=== PATIENT | female | born 1940 | race Caucasian/White ===

== ENCOUNTER → 2018-08-11 | Outpatient (CLI) | payer MEDICARE ==
[~2018-08-11] MED LIST: AUGM875T28 PO; BISO5TAB5 PO; COUM2.5T17 PO; FOSA70TA PO; GLUC15002 PO; GLUC1CAP10 PO; LYRI75CA PO; MIRA3350 PO; PERC5TAB12 PO; SENO8.6T5 PO
[2018-08-11 10:16] LABS: HEMATOCRIT 41.2 % (36.0-47.0); HEMOGLOBIN 13.5 g/dl (12.0-15.5); MEAN CORPUSCULAR HEMOGLOBIN 31.1 pg (27.0-33.0); MEAN CORPUSCULAR HGB CONC 32.8 g/dl (32.0-36.5); MEAN CORPUSCULAR VOLUME 94.9 fl (80.0-96.0); PLATELET COUNT, AUTOMATED 221 10^3/uL (150-450); RED BLOOD COUNT 4.34 10^6/uL (4.00-5.40); WHITE BLOOD COUNT 5.7 10^3/uL (4.0-10.0)
--- NOTE | 2018-08-11 10:19 | REP ---
Chest x-ray: Two views. History: Right hip arthroplasty. Comparison study: August 29, 2015. Findings: There is moderate cardiomegaly. Cardiothoracic ratio measures 55.7%. Heart size is felt to be unchanged. The aorta is tortuous as before. The lungs are somewhat hyperinflated but remain clear. Pleural angles are sharp. There are degenerative changes in the thoracic spine. Pulmonary vasculature is not increased. Impression: Hyperinflation consistent with some degree of COPD. Cardiomegaly. No acute changes. Electronically Signed by Heribe Hernandez MD 08/11/2018 10:50 A
[2018-08-11 10:38] LABS: ALBUMIN 4.2 GM/DL (3.2-5.2); BILIRUBIN,TOTAL 0.8 MG/DL (0.2-1.0); CALCIUM LEVEL 9.3 MG/DL (8.8-10.2); CREATININE FOR GFR 0.99 MG/DL (0.55-1.30); GLOMERULAR FILTRATION RATE 57.6 (>39); POTASSIUM SERUM 4.1 MEQ/L (3.5-5.1); TOTAL PROTEIN 7.6 GM/DL (6.4-8.2)
[2018-08-11 10:40] LABS: ERYTHROCYTE SEDIMENTATION RATE 21 mm/hr (0-30)
--- NOTE | 2018-08-12 21:42 | ECGEPIP ---
Stationary ECG Study [facility] Test Date: 2018-08-11 Pat Name: JOSE BOYLE Department: Room: - Gender: F Television Inspector: : 1940 Requested By: Naman Carbone Order Number: [id number] Reading MD: Cirilo Gonzalez Measurements Intervals [place] Rate: 63 P: 41 NV: 145 QRS: 22 QRSD: 98 T: 4 QT: 403 QTc: 413 Interpretive Statements SINUS RHYTHM MODERATE ST DEPRESSION Electronically Signed On 08-12-2018 21:41:58 EST by Cirilo Gonzalez
== END ==
LOC: M LAB 09:11
PROVIDERS: ATTEND Orthopaedic Surgery
DX: Z01.818 Encounter for other preprocedural examination (principal); I51.7 Cardiomegaly; M16.11 Unilateral primary osteoarthritis, right hip

== ENCOUNTER 2018-09-08 06:45 | Inpatient (IN) | payer MEDICARE ==
--- NOTE | 2018-08-23 15:29 | HPE ---
DATE OF ADMISSION: 09/08/2018 CHIEF COMPLAINT: Right hip pain. HISTORY OF PRESENT ILLNESS: This is a pleasant 77-year-old female with progressively worsening right hip pain and stiffness. She has failed to improve with conservative treatment. She has elected for surgery for her continued symptoms. She has pain with weightbearing activities and her activities of daily living. X-rays of the hip are notable for advanced osteoarthritis of the right hip joint. She has consented for a right total hip arthroplasty by Dr. Naman Chan. Medical optimization was performed by Dr. Carbone's office. ALLERGIES: No known drug allergies. CURRENT MEDICATIONS: - alendronate sodium 70 mg once a week - bisoprolol 5 mg a day - lisinopril 10 mg a day PAST MEDICAL HISTORY: Includes hypertension and osteoporosis. PAST SURGICAL HISTORY: Includes a left total hip arthroplasty. SOCIAL HISTORY: The patient is retired. She does not smoke or drink alcohol. FAMILY HISTORY: Noncontributory. REVIEW OF SYSTEMS: This patient denies chest pain, heart palpitations, cough, wheezing, difficulty breathing, and shortness of breath. She denies abdominal pain, nausea, vomiting, diarrhea, or constipation. She denies recent upper respiratory infection or urinary tract infection symptoms. She does complain of persistent pain in the right hip and pain with weightbearing activities in the right hip. PHYSICAL EXAMINATION: GENERAL: She is a well-nourished, well-developed, in no acute distress, alert female. She ambulates with a significant limp favoring the right lower extremity. She uses a cane. VITAL SIGNS: She is 4 feet, 11 inches, weighs 161.2 pounds with a temperature of 97.7, blood pressure 132/60, pulse of 62, and respirations of 16. NECK: Supple without adenopathy or jugular venous distention. LUNGS: Clear to auscultation without rales or wheeze. HEART: Regular rate and rhythm. ABDOMEN: Bowel sounds were present. EXTREMITIES: Examination of the hip revealed intact skin. She had decreased range of motion secondary to pain and stiffness. The limb is neurovascularly intact. LABORATORY DATA: Chest x-ray showed hyperinflation consistent with some degree of COPD, cardiomegaly but no acute changes. EKG showed sinus rhythm at 63 beats per minute. Glucose 106, BUN 15, creatinine 0.99, sodium 138, potassium 4.1. CBC was within normal limits. Sedimentation rate was 21, prothrombin time 13.2, INR 1.11. IMPRESSION: Symptomatic osteoarthritis of the right hip joint. PLAN: Consented for a right total hip arthroplasty by Dr. Naman Chan.
[~2018-09-08] VITALS: Ht 154.9 cm; Wt 73.0 kg
[2018-09-08] MEDS ORDERED: ceFAZolin 2 GM/D5W 50 ML IV BAG (J0690 PER 500MG) As Ordered ONE (07:07)
[2018-09-08] MEDS ORDERED: LR 1,000 ML IV ONE (07:30)
[2018-09-08] MEDS ORDERED: BUPIVACAINE/DEXTROSE 0.75% 2 ML AMP As Ordered ONE (08:22)
[2018-09-08] MEDS ORDERED: LIDOCAINE 2% INJ 100 MG/5 ML SDV (FOR ANES.) As Ordered ONE (08:22)
[2018-09-08] MEDS ORDERED: PROPOFOL 200 MG/20 ML VIAL As Ordered ONE (08:22)
[2018-09-08] MEDS: BISOPROLOL FUMARATE 5 MG TAB PO SCH (09:00)
[2018-09-08] MEDS ORDERED: MIDAZOLAM INJ 2 MG/2 ML VIAL (J2250) As Ordered ONE (09:10)
[2018-09-08] MEDS ORDERED: fentaNYL 100 MCG/2 ML INJECTION (J3010) As Ordered ONE (09:11)
[2018-09-08] MEDS ORDERED: EPINEPHrine INJ 1 MG/ML 1ML AMP As Ordered ONE (09:34)
[2018-09-08] MEDS ORDERED: TRANEXAMIC ACID 100 MG/ML 10ML VIAL As Ordered ONE (09:34)
[2018-09-08] MEDS ORDERED: ceFAZolin 1GM INJ (J0690 PER 500MG) As Ordered ONE (09:34)
[2018-09-08] MEDS ORDERED: ePHEDrine SULFATE 25 MG/5 ML(5MG/ML) SYRINGE As Ordered ONE ×2 (10:57→11:15)
[2018-09-08] MEDS ORDERED: HYDROMORPHONE HCL 0.5 MG/ 0.5 ML SYRINGE (J1170 PER 1) IV PRN (12:15)
[2018-09-08] MEDS ORDERED: fentaNYL 100 MCG/2 ML INJECTION (J3010) IV PRN (12:15)
[2018-09-08] MEDS ORDERED: ONDANSETRON 4MG/2ML VIAL (J2405) IV PRN ×2 (12:15)
[2018-09-08] MEDS ORDERED: PERCOCET 5MG/325MG TAB PO PRN (12:15)
[2018-09-08] MEDS ORDERED: LR 1,000 ML IV SCH ×2 (12:15)
[2018-09-08] MEDS ORDERED: MORPHINE 4 MG/ML 1ML VIAL/SYRINGE (J2270) IV PRN ×2 (12:15)
[2018-09-08] MEDS ORDERED: ACETAMINOPHEN TAB 650MG DOSE (2X325MG) PO PRN (12:15)
[2018-09-08] MEDS ORDERED: FLEET ENEMA PR PRN (12:15)
--- NOTE | 2018-09-08 12:53 | REP ---
Right hip: Two views. History: Postop. Findings: The patient is status post right hip arthroplasty. Arthroplasty components are in good position. There are lateral skin delores. Some periarticular soft tissue emphysema and swelling are seen. Impression: Status post right hip arthroplasty. Electronically Signed by Herbie Hernandez MD 09/08/2018 10:22 P
--- NOTE | 2018-09-08 13:03 | IPN ---
DATE: 09/08/2018 Patient seen and examined. She wishes to go ahead with a right total hip arthroplasty. She understands the nature of the procedure and the risks of bleeding, infection, damage to nerves, vessels, persistent pain, wear, loosening, dislocation, leg length inequality, blood clots, medical problems, among others. Preop clearance has been obtained. She wished to go ahead with surgery.
[2018-09-08 14:30] VITALS: BP 151/66
[2018-09-08 15:00] VITALS: BP 150/71
--- NOTE | 2018-09-08 15:30 | CR.PDOC ---
General Date of Consultation: Sep 08, 2018 Referring Provider: Naman Chan Primary Care Physician: Naman Carbone Attending Physician: EVERETTE BACH MD Consultation REASON FOR CONSULTATION/CHIEF COMPLAINT: Medical management HISTORY OF PRESENT ILLNESS: Ms. Bishop is a 77-year-old female with a past medical history of atrial fibrillation, hypertension, osteoporosis, chronic hip pain and stiffness, hold medical team was consulted by Dr. Chan for medical management. Patient is postoperative of right hip arthroplasty. She was examined in post op. She was stable without any acute complaints. Denies chest pain, denies nausea, denied vomiting, denies changes in vision. Denies shortness of breath, or difficulty breathing. ALLERGIES: Please see below. HOME MEDICATIONS: Please see below. PAST MEDICAL HISTORY: A. fib. Osteoporosis. Hypertension PAST SURGICAL HISTORY: Left total hip arthroplasty Radiofrequency ablation for atrial fibrillation FAMILY HISTORY: Noncontributory SOCIAL HISTORY: Patient is retired. Denies cigarettes, denies alcohol use. REVIEW OF SYSTEMS: ROS CONSTITUTIONAL: No fevers, denies chills, denies weight loss, denies lethargy HEENT: No rhinorrhea, no itchy eyes, no congesion, CARDIOVASCULAR: No murmurs no palpitations and arrhythmias RESPIRATORY: Not cough, No SOB, no issues to report GASTROINTESTINAL: No nausea, no vomiting, no difficulty swallowing, no pain with eating, no diarrhea HEMATOLOGICAL: No bleeding GENITOURINARY:No Issues HEMATOLOGIC/LYMPHATIC: No swelling PE GENERAL APPEARANCE: Alert no acute distress. SKIN: Warm, well perfused. ENT:Neck is suple, no JVD THORAX: Symmetrical. LUNGS: Clear to auscultation bilaterally. HEART: Normal S1, S2. No murmurs, no rubs, no gallops ABDOMEN: Soft. No masses. Bowel sounds are present. TRUNK/SPINE:Straight. EXTREMITIES: Right hip, wrapped in bandage, no purulent drainage, no sinus infection, tenderness to palpation PULSES: 2+ upper and lower extremity . LABORATORY DATA: Please see below. PLAN: Consented for a right total hip arthroplasty by Dr. Naman Chan. ASSESSMENT/PLAN: 1. Status post Right total hip arthroplasty,earlier today, by Dr. Chan. Medicine team has been consulted for medical management. At this time, the patient is stable. Her pain is well controlled. She is on cefazolin at this time, with Percocet and morphine for pain control. 2. Atrial fibrillation. Patient has a heart rate of 72, BP is well-controlled. Her xarelto has been restarted 3. Osteoporosis - Continue home medication 4. Hypertension: -Continue home meds 4. Deep vein thrombosis (DVT) prophylaxis. The patient is on thromboembolic deterrent stockings (TEDS) and sequentials plus xarelto Vital Signs/I&O Vital Signs Date Time Temp Pulse Resp B/P (MAP) Pulse Ox O2 Delivery O2 Flow Rate FiO2 09/08/18 13:37 72 18 142/70 (94) 99 Room Air 09/08/18 12:44 98 Allergies Coded Allergies: No Known Allergies (Unverified , 08/09/18) Home Medications Scheduled Alendronate Sodium (Fosamax) 70 Mg Tab, 70 MG PO QWEEK, (Reported) Wednesday Bisoprolol Fumarate (Bisoprolol Fumarate) 5 Mg Tab, 5 MG PO DAILY, (Reported) Glucosamine Chondroitin (Glucosamine Chondroitin) 1 Cap Cap, 1 CAP PO DAILY, (Reported) SHABANA VALLES DO Sep 08, 2018 14:48
[2018-09-08 16:00] VITALS: BP 133/22
[2018-09-08 17:00] VITALS: BP 135/25
--- NOTE | 2018-09-08 17:23 | RO ---
DATE OF PROCEDURE: 09/08/2018 PREOPERATIVE DIAGNOSIS: Right hip osteoarthritis. POSTOPERATIVE DIAGNOSIS: Right hip osteoarthritis. OPERATIVE PROCEDURE: Right total hip arthroplasty using a Wahkon size 6 high offset 52 acetabular component 36 +1.5 ball and the stem was high offset. SURGEON: Naman Chan MD PARALLEL COMPUTING SOFTWARE ENGINEER: JUAN Hansen SECOND PARALLEL COMPUTING SOFTWARE ENGINEER: Eladio Vargas MD ANESTHESIA: Spinal ESTIMATED BLOOD LOSS: 250 mL COMPLICATIONS: None. INDICATIONS: This is a 77-year-old woman with severe arthritis of her right hip. She has gone through a previous left hip replacement and did well with it. She wanted to go ahead with a right hip replacement. She understood the nature of this, the risks of bleeding, infection, damage to nerves, vessels, persistent pain, wear, loosening, dislocation, leg length inequality, blood clots, medical problems, . A preop clearance was obtained. DESCRIPTION OF PROCEDURE: The patient was taken to the operating room and placed in the left lateral decubitus position on the [place] positioner after a spinal was introduced. The right hip was prepped and draped in the usual sterile fashion. A time-out was performed. I then created a longitudinal incision over the lateral aspect of the hip and sharply dissected down through subcutaneous tissue, incised the fascia mamadou. She had very thin poor quality fascia mamadou particularly proximally and it seemed to actually tear more then I was able to incise it proximally. I then exposed the abductors which were largely replaced with fat. I split the abductors and divided about the anterior 40% off as I exposed it down to the femoral neck splitting the labrum and gradually externally rotating the femur. Once we had the neck appropriately, I then dislocated the hip with bone hook and the assistant teacher primary's help. I then used canal initiating reamer followed by the canal finding reamer, lateralizing reamer and sequentially reamed up to a size 6 which had good bony purchase. I then used the saw to remove the head which had severe arthritis. She also had somewhat of a protrusio acetabulum and the head was somewhat captured which make dislocation difficult. It was also noted that her head and neck were somewhat retroverted compared to a normal hip. The acetabulum was then prepared. Anterior and posterior retractors were placed. I cleaned the soft tissue from around the acetabulum and then sequentially reamed and was very careful not to deepen the acetabulum to any significant degree, mostly just rounding out the acetabulum and an excellent appearance was noted. Once I got up to a 51 I had good bleeding bone and good concentric reaming and had not violated the floor. I had irrigated. I then impacted in a 52 acetabular component. Excellent fit was noted. There were some osteophytes around the rim which had to be removed and it was also noted that her acetabulum was slightly retroverted compared to normal. I placed the cup and the appropriate amount of anteversion using an external alignment guide. Then placed the actual polyethylene, impacted it in place after we placed the apex hole eliminator. Directed attention back to the femur and I was able to gradually broach up to a size 6, which had a very good fit and fill. The broach was a little bit proud, but the neck cut was just a couple millimeters shorter than I would typically do, so this was a very good fit and I was very pleased with the alignment and position. I then reduced with a trial with a 1.5 high offset which is what she had on the other side and put the hip through range of motion and excellent stability was noted. Excellent soft tissue tension was noted. There was minimal shuck in full extension and she did not impinge in extension, external rotation or flexion internal rotation. I then removed the trial components, again copiously irrigated. The actual size 6 high offset Wahkon stem was then impacted into place. It fit very nicely and had a solid feel to it and there was no fracture noted. I then placed a 1.5 36 ball, impacted this in place and then reduced the hip with the assistant teacher primary's help, put the hip through range of motion. Again very pleased with soft tissue tension and the position. I irrigated again copiously, placed the TXA solution, repaired the minimus with #1 Vicryl suture and the abductor with #1 Vicryl suture. Actually I was able to get fairly good repair despite the quality of her tissues. The fascia mamadou was able to be repaired especially distally and up to at least the proximal third where it basically was thin and somewhat torn, so I was able to repair this using Stratafix and overall get a good soft tissue envelope over the lateral head. I irrigated, closed the subcu with #2-0 Vicryl and the skin with delores. Sterile dressing was applied and she was taken to recovery room in stable condition. There were no known complications. The plan will be routine postop. The assistant teacher primary was instrumental in holding retractors and assisting in reducing and dislocating the hip and assisting in wound closure.
[2018-09-08 19:00] VITALS: BP 140/62
[2018-09-08 22:00] VITALS: BP 134/63
[2018-09-08] MEDS: PERCOCET 5MG/325MG TAB PO PRN (22:03)
[2018-09-09 02:00] VITALS: BP 141/72
[2018-09-09 06:00] VITALS: BP 133/63
[2018-09-09 06:59] LABS: HEMATOCRIT 29.7 % (36.0-47.0); HEMOGLOBIN 10.3 g/dl (12.0-15.5); MEAN CORPUSCULAR HEMOGLOBIN 31.5 pg (27.0-33.0); MEAN CORPUSCULAR HGB CONC 34.7 g/dl (32.0-36.5); MEAN CORPUSCULAR VOLUME 90.8 fl (80.0-96.0); PLATELET COUNT, AUTOMATED 177 10^3/uL (150-450); RED BLOOD COUNT 3.27 10^6/uL (4.00-5.40); WHITE BLOOD COUNT 8.6 10^3/uL (4.0-10.0)
--- NOTE | 2018-09-09 08:20 | IPN ---
DATE OF SERVICE: 09/09/2018 CHIEF COMPLAINT: Postoperative day 1 right total hip arthroplasty by Dr. Chan. HISTORY OF PRESENT ILLNESS: This 77-year-old female is now postoperative day 1 right total hip arthroplasty. This was performed by Dr. Chan. He asked me to see the patient to cover for him as he is away today. She is doing well this morning. She has had a hip replacement on the other side so knows how to proceed. No fever, chills, chest pain, shortness of breath or any other constitutional symptoms. PHYSICAL EXAMINATION: Temperature 99.0, blood pressure 133/63, pulse rate 91, 98% on room air, respiratory rate 18. She is alert and oriented times three. Mood and affect is normal, pleasant, positive. A bulky dressing is still on the right hip. Thigh compartments are soft. She has normal sensation in both her lower extremities. She is able to wiggle her toes and dorsiflex and plantarflex her feet. Feet are warm and well perfused with good pedal pulses. LABORATORY EXAMINATION: This morning revealed hemoglobin of 10.3. There is no other blood work to speak of. ASSESSMENT AND PLAN: This is a 77-year-old female who is now postoperative day 1 from right total hip performed by Dr. Chan. She should mobilize and do some deep breathing. For venous thromboembolism (VTE) prophylaxis, she is on Xarelto 10 mg by mouth once daily. We will see how she mobilizes and maybe discharge home when comfortable.
[2018-09-09] MEDS: MIRALAX *UNIT DOSE* 17GM PACKET PO SCH (09:00)
[2018-09-09 09:18] LABS: BLOOD UREA NITROGEN 13 MG/DL (7-18); CARBON DIOXIDE LEVEL 27 MEQ/L (21-32); CHLORIDE LEVEL 103 MEQ/L (98-107); CREATININE FOR GFR 0.82 MG/DL (0.55-1.30); GLOMERULAR FILTRATION RATE > 60.0 (>39); GLUCOSE, FASTING 129 MG/DL (70-100); POTASSIUM SERUM 4.1 MEQ/L (3.5-5.1); SODIUM LEVEL 137 MEQ/L (136-145)
[2018-09-09 10:00] VITALS: BP 184/84
[2018-09-09 10:45] VITALS: BP 139/81
[2018-09-09] MEDS: MOM 30ML SUSPENSION UDC PO SCH (12:18)
[2018-09-09] MEDS: BISOPROLOL FUMARATE 5 MG TAB PO SCH (12:18)
[2018-09-09] MEDS: SENOKOT S TAB PO SCH ×2 (12:18→23:05)
[2018-09-09 14:00] VITALS: BP 142/63
--- NOTE | 2018-09-09 17:02 | IPNPDOC ---
Text Note Date of Service The patient was seen on 09/09/18. NOTE Subjective: Patient feels well. Denies any complaints. Her pain controlled. Objective: Vitals: (see below) General: No acute distress, laying comfortably in bed. HEENT: Moist mucous membranes. Neck: No JVD or lymphadenopathy Cardiac: RRR, No murmurs Pulm: Clear to auscultation b/l. No wheezing, rhonchi Abd: NT/ND + BS Ext: No lower extremity edema or cyanosis. Right hip with mild swelling. No bleeding. Bandage clean and dry. Distal pulses intact. Capillary refill less th an 2 seconds. Labs (see below) Assessment/Plan 1. Postop status post right total hip arthroplasty 09/08/18. Management per orthopedics. Pain management per orthopedics. 2. Atrial fibrillation. Rate controlled. Xarelto has been restarted. 3. Hypertension controlled continue current meds. 4. Osteoporosis- will need close outpatient follow-up with her primary care physician. DVT prophy: Per orthopedics VS,Tia, I+O VS, Tia, I+O Laboratory Tests 09/09/18 06:42 Calcium Level 8.0 L 09/09/18 06:43 Red Blood Count 3.27 L, Mean Corpuscular Volume 90.8, Mean Corpuscular Hemoglobin 31.5, Mean Corpuscular Hemoglobin Concent 34.7, Red Cell Distribution Width 12.1 Vital Signs Date Time Temp Pulse Resp B/P (MAP) Pulse Ox O2 Delivery O2 Flow Rate FiO2 09/09/18 14:00 98.6 88 14 142/63 (89) 95 09/08/18 13:37 Room Air I&O- Last 24 Hours up to 6 AM 09/09/18 06:00 Intake Total 3700 ml Output Total 975 ml Balance 2725 ml LATRICIA CONNER MD Sep 09, 2018 17:02
[2018-09-09] MEDS: RIVAROXABAN 10 MG TAB (XARELTO) PO SCH (17:37)
[2018-09-09 22:00] VITALS: BP 147/65
[2018-09-10] MEDS: PERCOCET 5MG/325MG TAB PO PRN (05:47)
[2018-09-10 06:00] VITALS: BP 127/61
[2018-09-10 06:42] LABS: HEMOGLOBIN 9.7 g/dl (12.0-15.5); MEAN CORPUSCULAR HEMOGLOBIN 32.1 pg (27.0-33.0); MEAN CORPUSCULAR HGB CONC 34.6 g/dl (32.0-36.5); MEAN CORPUSCULAR VOLUME 92.7 fl (80.0-96.0); PLATELET COUNT, AUTOMATED 164 10^3/uL (150-450); RED BLOOD COUNT 3.02 10^6/uL (4.00-5.40); WHITE BLOOD COUNT 12.3 10^3/uL (4.0-10.0)
[2018-09-10 06:53] LABS: BLOOD UREA NITROGEN 14 MG/DL (7-18); CALCIUM LEVEL 7.9 MG/DL (8.8-10.2); CARBON DIOXIDE LEVEL 26 MEQ/L (21-32); CHLORIDE LEVEL 102 MEQ/L (98-107); CREATININE FOR GFR 0.81 MG/DL (0.55-1.30); GLOMERULAR FILTRATION RATE > 60.0 (>39); GLUCOSE, FASTING 137 MG/DL (70-100); SODIUM LEVEL 135 MEQ/L (136-145)
[2018-09-10] MEDS: MIRALAX *UNIT DOSE* 17GM PACKET PO SCH (10:10)
[2018-09-10] MEDS: MOM 30ML SUSPENSION UDC PO SCH (10:11)
[2018-09-10] MEDS: SENOKOT S TAB PO SCH ×2 (10:51→20:28)
[2018-09-10] MEDS: BISOPROLOL FUMARATE 5 MG TAB PO SCH (10:52)
--- NOTE | 2018-09-10 12:21 | IPNPDOC ---
Text Note Date of Service The patient was seen on 09/10/18. NOTE Subjective: Patient feels well. Pain controlled. No CP/palpitations. Objective: Vitals: (see below) General: No acute distress, laying comfortably in bed. HEENT: Moist mucous membranes. Neck: No JVD or lymphadenopathy Cardiac: RRR, No murmurs Pulm: Clear to auscultation b/l. No wheezing, rhonchi Abd: NT/ND + BS Ext: No lower extremity edema or cyanosis. Right hip with mild swelling. No bleeding. Bandage clean and dry. Distal pulses intact. Capillary refill less than 2 seconds. Labs (see below) Assessment/Plan 1. Postop status post right total hip arthroplasty 09/08/18. Management per orthopedics. Pain management per orthopedics. 2. Atrial fibrillation. Rate controlled. Xarelto per ortho based on post-op 3. Hypertension controlled continue current meds. 4. Osteoporosis- will need close outpatient follow-up with her primary care physician. DVT prophy: Per orthopedics VS,Tia, I+O VS, Tia, I+O Laboratory Tests 09/10/18 06:03 Red Blood Count 3.02 L, Mean Corpuscular Volume 92.7, Mean Corpuscular Hemoglobin 32.1, Mean Corpuscular Hemoglobin Concent 34.6, Red Cell Distribution Width 12.2, Calcium Level 7.9 L Vital Signs Date Time Temp Pulse Resp B/P (MAP) Pulse Ox O2 Delivery O2 Flow Rate FiO2 09/10/18 10:52 83 127/63 09/10/18 06:17 18 09/10/18 06:00 98.0 95 09/08/18 13:37 Room Air I&O- Last 24 Hours up to 6 AM 09/10/18 06:00 Intake Total 960 ml Output Total 500 ml Balance 460 ml LATRICIA CONNER MD Sep 10, 2018 12:21
[2018-09-10] MEDS: RIVAROXABAN 10 MG TAB (XARELTO) PO SCH (17:59)
[2018-09-10 22:00] VITALS: BP 134/60
[2018-09-11 06:00] VITALS: BP 145/67
[2018-09-11 06:51] LABS: BLOOD UREA NITROGEN 18 MG/DL (7-18); CALCIUM LEVEL 7.8 MG/DL (8.8-10.2); CARBON DIOXIDE LEVEL 27 MEQ/L (21-32); CHLORIDE LEVEL 101 MEQ/L (98-107); CREATININE FOR GFR 0.84 MG/DL (0.55-1.30); GLOMERULAR FILTRATION RATE > 60.0 (>39); GLUCOSE, FASTING 124 MG/DL (70-100); POTASSIUM SERUM 4.3 MEQ/L (3.5-5.1); SODIUM LEVEL 134 MEQ/L (136-145)
[2018-09-11 08:30] LABS: HEMATOCRIT 26.5 % (36.0-47.0); HEMOGLOBIN 8.8 g/dl (12.0-15.5); MEAN CORPUSCULAR HEMOGLOBIN 31.5 pg (27.0-33.0); MEAN CORPUSCULAR HGB CONC 33.2 g/dl (32.0-36.5); PLATELET COUNT, AUTOMATED 178 10^3/uL (150-450); RED BLOOD COUNT 2.79 10^6/uL (4.00-5.40); WHITE BLOOD COUNT 12.8 10^3/uL (4.0-10.0)
[2018-09-11] MEDS: SENOKOT S TAB PO SCH ×2 (09:02→21:56)
[2018-09-11] MEDS: MOM 30ML SUSPENSION UDC PO SCH (09:02)
[2018-09-11] MEDS: MIRALAX *UNIT DOSE* 17GM PACKET PO SCH (09:02)
[2018-09-11] MEDS: BISOPROLOL FUMARATE 5 MG TAB PO SCH (09:03)
--- NOTE | 2018-09-11 10:26 | IPNPDOC ---
Text Note Date of Service The patient was seen on 09/11/18. NOTE Subjective: Pain well controlled. No acute changes overnight. Objective: Vitals: (see below) General: No acute distress, laying comfortably in bed. HEENT: Moist mucous membranes. Neck: No JVD or lymphadenopathy Cardiac: RRR, No murmurs Pulm: Clear to auscultation b/l. No wheezing, rhonchi Abd: NT/ND + BS Ext: No lower extremity edema or cyanosis. Right hip with mild swelling. No bleeding. Bandage clean and dry. Distal pulses intact. Capillary refill less than 2 seconds. Labs (see below) Assessment/Plan 1. Postop status post right total hip arthroplasty 09/08/18. Management per orthopedics. Pain management per orthopedics. 2. Atrial fibrillation. Rate controlled. Xarelto per ortho based on post-op 3. Hypertension controlled continue current meds. 4. Osteoporosis- will need close outpatient follow-up with her primary care physician. DVT prophy: Per orthopedics VS,Tiffaniee, I+O VS, Fishbone, I+O Laboratory Tests 09/11/18 06:04 Red Blood Count 2.79 L, Mean Corpuscular Volume 95.0, Mean Corpuscular Hemoglobin 31.5, Mean Corpuscular Hemoglobin Concent 33.2, Red Cell Distribution Width 12.3, Calcium Level 7.8 L Vital Signs Date Time Temp Pulse Resp B/P (MAP) Pulse Ox O2 Delivery O2 Flow Rate FiO2 09/11/18 09:03 92 130/60 09/11/18 06:00 98.7 18 93 09/08/18 13:37 Room Air I&O- Last 24 Hours up to 6 AM 09/11/18 06:00 Intake Total 1380 ml Balance 1380 ml LATRICIA CONNER MD Sep 11, 2018 10:26
[2018-09-11] MEDS ORDERED: CALCIUM GLUCONATE 1,000 MG in D5W MINI-BAG PLUS 100 ML IV ONE (11:00)
[2018-09-11 14:00] VITALS: BP 140/67
[2018-09-11] MEDS: RIVAROXABAN 10 MG TAB (XARELTO) PO SCH (17:50)
[2018-09-11 22:00] VITALS: BP 133/59
[2018-09-12 06:00] VITALS: BP 140/67
[2018-09-12 07:09] LABS: BLOOD UREA NITROGEN 24 MG/DL (7-18); CALCIUM LEVEL 7.9 MG/DL (8.8-10.2); CARBON DIOXIDE LEVEL 27 MEQ/L (21-32); CHLORIDE LEVEL 100 MEQ/L (98-107); CREATININE FOR GFR 0.89 MG/DL (0.55-1.30); GLOMERULAR FILTRATION RATE > 60.0 (>39); GLUCOSE, FASTING 125 MG/DL (70-100); POTASSIUM SERUM 4.3 MEQ/L (3.5-5.1); SODIUM LEVEL 134 MEQ/L (136-145)
[2018-09-12] MEDS: SENOKOT S TAB PO SCH (09:00)
[2018-09-12] MEDS: MOM 30ML SUSPENSION UDC PO SCH (09:00)
[2018-09-12] MEDS: MIRALAX *UNIT DOSE* 17GM PACKET PO SCH (09:00)
[2018-09-12 09:56] VITALS: BP 140/67
[2018-09-12] MEDS: BISOPROLOL FUMARATE 5 MG TAB PO SCH (09:56)
[2018-09-12 12:30] LABS: HEMATOCRIT 23.6 % (36.0-47.0); MEAN CORPUSCULAR HEMOGLOBIN 31.5 pg (27.0-33.0); MEAN CORPUSCULAR HGB CONC 33.9 g/dl (32.0-36.5); MEAN CORPUSCULAR VOLUME 92.9 fl (80.0-96.0); PLATELET COUNT, AUTOMATED 279 10^3/uL (150-450); RED BLOOD COUNT 2.54 10^6/uL (4.00-5.40); WHITE BLOOD COUNT 13.8 10^3/uL (4.0-10.0)
[2018-09-12] MEDS ORDERED: SENO8.6T5 PO (13:13)
[2018-09-12] MEDS ORDERED: FLEEENE12 PR (13:13)
[2018-09-12] MEDS ORDERED: PERC5TAB12 PO (13:13)
[2018-09-12] MEDS ORDERED: XARE10TA PO (13:13)
[2018-09-12] MEDS ORDERED: MILK120011 PO (13:13)
[2018-09-12] MEDS ORDERED: MIRA3350 PO (13:13)
[2018-09-12] MEDS ORDERED: APAP325T4 PO (13:13)
== END 2018-09-12 13:38 | DRG 470 ==
LOC: M OR 06:45 → M MS5PR 14:19
PROVIDERS: ADMIT Orthopaedic Surgery; ATTEND Orthopaedic Surgery
PROC: 0SR90JZ Replacement of Right Hip Joint with Synthetic Substitute, Open Approach (ICD-10-PCS; principal; 2018-09-08 09:45)
DX: M16.11 Unilateral primary osteoarthritis, right hip (principal); Z79.899 Other long term (current) drug therapy; I10 Essential (primary) hypertension; M81.0 Age-related osteoporosis without current pathological fracture; I48.91 Unspecified atrial fibrillation; Z96.642 Presence of left artificial hip joint

== ENCOUNTER → 2018-09-13 | Outpatient (REF) | payer MEDICARE ==
[~2018-09-13] MED LIST changes: +APAP325T4 PO; +FLEEENE12 PR; +MILK120011 PO; +XARE10TA PO
[2018-09-13 09:56] LABS: HEMATOCRIT 21.2 % (36.0-47.0); MEAN CORPUSCULAR HEMOGLOBIN 31.7 pg (27.0-33.0); MEAN CORPUSCULAR VOLUME 95.9 fl (80.0-96.0); PLATELET COUNT, AUTOMATED 239 10^3/uL (150-450); RED BLOOD COUNT 2.21 10^6/uL (4.00-5.40)
[2018-09-13 10:30] LABS: BLOOD UREA NITROGEN 27 MG/DL (7-18); CALCIUM LEVEL 7.5 MG/DL (8.8-10.2); CARBON DIOXIDE LEVEL 33 MEQ/L (21-32); CHLORIDE LEVEL 100 MEQ/L (98-107); CREATININE FOR GFR 0.89 MG/DL (0.55-1.30); FERRITIN 390 NG/ML (8-252); GLOMERULAR FILTRATION RATE > 60.0 (>39); GLUCOSE, FASTING 105 MG/DL (70-100); IRON (FE) 66 UG/DL (50-170); PERCENT SATURATION 34.6 % (13.2-45.0); SODIUM LEVEL 138 MEQ/L (136-145); TOTAL IRON BINDING CAPACITY 191 UG/DL (250-450)
== END ==
PROVIDERS: ATTEND Internal Medicine
DX: D64.9 Anemia, unspecified (principal)

== ENCOUNTER → 2018-09-14 | Outpatient (REF) | payer MEDICARE, SELFPAY ==
[~2018-09-14] VITALS: Ht 154.9 cm; Wt 73.0 kg
[~2018-09-14] MED LIST changes: +ACETAMINOPHEN 325 MG TAB PO ONE; +diphenhydrAMINE 25 MG CAP PO SCH
[2018-09-14 08:05] VITALS: BP 124/58
[2018-09-14 12:26] VITALS: BP 117/62
== END ==
LOC: M INFU 07:51 → EDSTATUS 08:30 → M INFU 15:54
PROVIDERS: ATTEND Physician Assistant
DX: D64.9 Anemia, unspecified (principal)

== ENCOUNTER → 2018-09-14 | Outpatient (REF) ==
[~2018-09-14] MED LIST changes: -ACETAMINOPHEN 325 MG TAB PO ONE; -diphenhydrAMINE 25 MG CAP PO SCH
[2018-09-15 09:43] LABS: HEMATOCRIT 28.7 % (36.0-47.0); HEMOGLOBIN 9.8 g/dl (12.0-15.5); MEAN CORPUSCULAR HGB CONC 34.1 g/dl (32.0-36.5); MEAN CORPUSCULAR VOLUME 93.8 fl (80.0-96.0); PLATELET COUNT, AUTOMATED 295 10^3/uL (150-450); RED BLOOD COUNT 3.06 10^6/uL (4.00-5.40); WHITE BLOOD COUNT 13.2 10^3/uL (4.0-10.0)
== END ==
PROVIDERS: ATTEND Internal Medicine
DX: D64.9 Anemia, unspecified (principal)

== ENCOUNTER → 2018-09-16 | Outpatient (REF) ==
[2018-09-16 10:09] LABS: HEMATOCRIT 31.6 % (36.0-47.0); HEMOGLOBIN 10.5 g/dl (12.0-15.5); MEAN CORPUSCULAR HEMOGLOBIN 31.6 pg (27.0-33.0); MEAN CORPUSCULAR HGB CONC 33.2 g/dl (32.0-36.5); MEAN CORPUSCULAR VOLUME 95.2 fl (80.0-96.0); PLATELET COUNT, AUTOMATED 326 10^3/uL (150-450); RED BLOOD COUNT 3.32 10^6/uL (4.00-5.40); WHITE BLOOD COUNT 12.2 10^3/uL (4.0-10.0)
== END ==
PROVIDERS: ATTEND Internal Medicine
DX: D64.9 Anemia, unspecified (principal)

== ENCOUNTER → 2018-09-19 | Outpatient (REF) ==
[2018-09-19 10:15] LABS: HEMATOCRIT 30.5 % (36.0-47.0); MEAN CORPUSCULAR HEMOGLOBIN 31.9 pg (27.0-33.0); MEAN CORPUSCULAR HGB CONC 32.8 g/dl (32.0-36.5); MEAN CORPUSCULAR VOLUME 97.4 fl (80.0-96.0); PLATELET COUNT, AUTOMATED 332 10^3/uL (150-450); RED BLOOD COUNT 3.13 10^6/uL (4.00-5.40); WHITE BLOOD COUNT 9.4 10^3/uL (4.0-10.0)
[2018-09-19 10:36] LABS: BLOOD UREA NITROGEN 12 MG/DL (7-18); CALCIUM LEVEL 7.9 MG/DL (8.8-10.2); CARBON DIOXIDE LEVEL 24 MEQ/L (21-32); CHLORIDE LEVEL 106 MEQ/L (98-107); CREATININE FOR GFR 0.61 MG/DL (0.55-1.30); GLOMERULAR FILTRATION RATE > 60.0 (>39); GLUCOSE, FASTING 75 MG/DL (70-100); POTASSIUM SERUM 4.2 MEQ/L (3.5-5.1); SODIUM LEVEL 139 MEQ/L (136-145)
== END ==
PROVIDERS: ATTEND Internal Medicine
DX: D64.9 Anemia, unspecified (principal)

== ENCOUNTER → 2018-09-21 | Outpatient (REF) | payer MEDICARE ==
[2018-09-21 09:20] LABS: HEMATOCRIT 31.4 % (36.0-47.0); HEMOGLOBIN 10.1 g/dl (12.0-15.5); MEAN CORPUSCULAR HEMOGLOBIN 31.1 pg (27.0-33.0); MEAN CORPUSCULAR HGB CONC 32.2 g/dl (32.0-36.5); MEAN CORPUSCULAR VOLUME 96.6 fl (80.0-96.0); PLATELET COUNT, AUTOMATED 362 10^3/uL (150-450); RED BLOOD COUNT 3.25 10^6/uL (4.00-5.40); WHITE BLOOD COUNT 7.9 10^3/uL (4.0-10.0)
== END ==
PROVIDERS: ATTEND Internal Medicine
DX: D64.9 Anemia, unspecified (principal)